=== PATIENT | male | born 1995 | race Caucasian/White ===

== ENCOUNTER 2019-03-25 19:59 | Emergency (ER) | payer OTHER ==
[~2019-03-25 19:59] MED LIST: BACTRIM DS TAB1 EACH PO; KEFLEX500 MG PO
== END 2019-03-25 20:32 | disposition left against medical advice (07) ==
LOC: M.ERS 19:59
DX: Z53.21 Procedure and treatment not carried out due to patient leaving prior to being seen by health care provider (principal)